=== PATIENT | female | born 1960 | race Caucasian/White ===

== ENCOUNTER 2022-11-01 12:54 | Emergency (ER) | payer OTHER, SELFPAY ==
[2022-11-01] VITALS (22 sets, daily range): BP systolic 103–148; BP diastolic 59–100; PULSE 50–131; RESP 14–28; TEMP 36.4; O2SAT 93–99; BMI 21.4
--- NOTE | 2022-11-01 13:09 | DI.RAD.S_ITS ---
PROCEDURE: XR CHEST 1V INDICATIONS: chest pain TECHNIQUE: One view of the chest was acquired. COMPARISON: None. FINDINGS: Surgical changes and devices: None. Lungs and pleura: Lungs are clear, yet hyperexpanded. No pleural effusions or pneumothorax. Mediastinum: Mediastinal contours appear normal. Heart size is normal. Bones and chest wall: No suspicious bony lesions. Age-appropriate bony degenerative changes are seen. Overlying soft tissues appear unremarkable. IMPRESSION: Hyperexpanded lungs, without an acute cardiopulmonary process identified. Dictated by: Raghu Pizano M.D. on 11/01/2022 at 14:34 Approved by: Raghu Pizano M.D. on 11/01/2022 at 14:35
--- NOTE | 2022-11-01 13:10 | ED_ITS ---
HPI - Arrhythmia/Palpitations General Chief Complaint: Arrhythmia/Palpitations Stated Complaint: FEELS LIKE AFIB Time Seen by Provider: 11/01/22 12:56 Source: patient Mode of arrival: Ambulatory History of Present Illness HPI narrative: 61-year-old female nonsmoker with history of atrial fibrillation and ablation about 2 years ago presents with her significant other and a chief complaint of rapid heart this morning. She states that she is not had any episodes since her ablation and is not taking anticoagulants. She states that she woke up this morning and felt a rapid heart rate with some chest pressure and shortness of breath. She is certain she has not been in it for longer than a few hours. She denies any medication or dietary change. She is otherwise well and free of complaint Related Data Previous Rx's Medication Instructions Recorded rivaroxaban 20 mg tablet (Xarelto) 20 mg PO DAILY #30 tabs 11/01/22 Allergies Allergy/AdvReac Type Severity Reaction Status Date / Time diphenhydramine Allergy Verified 11/01/22 13:01 [From Bette] Review of Systems Review of Systems Narrative: GENERAL: Denies chills, fatigue, malaise, fever, sweats. HEENT: Denies sinus pain, ear pain, sore throat, difficulty swallowing, dizziness. RESPIRATORY: see HPI CARDIOVASCULAR: see HPI GASTROINTESTINAL: Denies nausea, vomiting, abdominal pain, diarrhea, constipation, melena. : Denies dysuria, frequency, incontinence, hematuria, urinary retention. MUSCULOSKELETAL: denies weakness, joint pain, or bony pain SKIN: Denies rash, skin lesions, or other NEUROLOGIC: Denies weakness, headache, numbness, change in speech, confusion, seizures, incoordination. PSYCHIATRIC: No concerning psychosocial issues. 12 point review of systems is negative except for those stated above Patient History Social History Smoking Status: Never smoker Smoking Status: Never smoker alcohol intake frequency: 0-2 drinks per day Substance Use Type: does not use Exam Narrative Exam Narrative: GENERAL: [61] year old patient appears stated age. Well-developed patient, in mild distress. HEAD: Atraumatic. Normocephalic. EYES: Pupils equal round and reactive. Extraocular motions intact. No scleral icterus. No injection or drainage. ENT: Nose without bleeding, purulent drainage. Throat without erythema, tonsillar hypertrophy or exudate. Airway patent. NECK: Trachea midline. Non tender CARDIOVASCULAR: tachycardic and irregular rhythm without murmurs, gallops, or rubs. RESPIRATORY: Clear to auscultation. Breath sounds equal bilaterally. No wheezes, rales, or rhonchi. GASTROINTESTINAL: Abdomen soft, non-tender, nondistended. EXTREMITIES: No edema or joint tenderness. BACK: Nontender without deformity or crepitance. No flank tenderness. NEURO: AOx3. SKIN: No rash or erythema of visible areas Initial Vital Signs Initial Vital Signs: Vital Signs Temperature 97.6 F 11/01/22 13:01 Pulse Rate 107 H 11/01/22 13:01 Respiratory Rate 18 11/01/22 13:01 Blood Pressure 145/100 H 11/01/22 13:01 Pulse Oximetry 98 11/01/22 13:01 Oxygen Delivery Method Room Air 11/01/22 13:01 Procedures Cardioversion Consent Signed: Yes Indication: rapid AFib Stability: Unstable Number of attempts (shocks): 1 Joules used: 120 Cardiac rhythm post-cardioversion: normal sinus rhythm Procedural Sedation Consent signed: Yes Time out performed: Yes Indication: cardioversion ASA Class: II Mallampati Airway Classification: Class II Preparation: cardiac monitor technician applied, pulse oximeter, capnometry used, reversal agents at bedside, suction/airway equipment at bedside and IV secured IV Propofol dose (mg): 80 Intraservice time/total sedation time (min): 10 ED Sedation Level: Moderate (Concious) Patient Tolerated Procedure: Well Complications: none Course Orders Ordered: ED Orders 11/01/22 13:09 XR chest 1V Stat 11/01/22 13:30 Complete Blood Count AUTO DIFF Stat Comprehensive Metabolic Panel Stat Lipase Stat MAG [Magnesium] Stat Troponin & CK Cardiac Panel Stat Discontinued Medications Sodium Chloride (Normal Saline 0.9%) 1,000 mls @ 150 mls/hr IV CONT [facility] Last Infusion: 11/01/22 16:19 Dose: 0 mls/hr Documented By: Admin: 11/01/22 13:42 Dose: 150 mls/hr Documented By: SPF Propofol (Propofol 200 Mg/20 Ml Vial) 65 mg 1 mg/kg (65 mg) IV NOW ONE Stop: 11/01/22 13:23 Last Admin: 11/01/22 15:22 Dose: Not Given Documented By: ANDIE Propofol (Propofol 200 Mg/20 Ml Vial) 80 mg IV SEEINSTR [facility] Last Admin: 11/01/22 15:11 Dose: 80 mg Documented By: ANDIE Rivaroxaban (Rivaroxaban 10 Mg Tablet) 20 mg PO NOW ONE Stop: 11/01/22 15:56 Last Admin: 11/01/22 16:20 Dose: 20 mg Documented By: ANDIE Vital Signs Vital signs: Vital Signs - 8 hr 11/01/22 13:01 11/01/22 15:15 11/01/22 15:17 Temperature 97.6 F Pulse Rate 107 H 53 L 52 L Respiratory Rate 18 26 H 19 Blood Pressure 145/100 H 110/62 Pulse Oximetry 98 93 96 Oxygen Delivery Method Room Air 11/01/22 13:18 11/01/22 13:30 11/01/22 14:59 Temperature Pulse Rate 126 H 127 H 125 H Respiratory Rate 27 H 22 23 Blood Pressure Pulse Oximetry 97 98 98 Oxygen Delivery Method Room Air Room Air 11/01/22 14:59 11/01/22 15:00 11/01/22 15:00 Temperature Pulse Rate 123 H Respiratory Rate 22 Blood Pressure 142/91 H 126/83 Pulse Oximetry 97 Oxygen Delivery Method Room Air 11/01/22 15:08 11/01/22 15:07 11/01/22 15:07 Temperature Pulse Rate 118 H Respiratory Rate 14 20 Blood Pressure 148/83 H Pulse Oximetry 96 Oxygen Delivery Method 11/01/22 15:10 11/01/22 15:10 11/01/22 15:15 Temperature Pulse Rate 131 H 52 L Respiratory Rate 28 H 23 Blood Pressure 122/88 Pulse Oximetry 98 93 Oxygen Delivery Method Room Air Room Air 11/01/22 15:15 11/01/22 15:21 11/01/22 15:21 Temperature Pulse Rate 53 L Respiratory Rate 22 Blood Pressure 110/62 108/64 Pulse Oximetry 96 Oxygen Delivery Method 11/01/22 15:25 11/01/22 15:25 11/01/22 15:30 Temperature Pulse Rate 52 L Respiratory Rate 20 Blood Pressure 116/69 103/69 Pulse Oximetry 97 Oxygen Delivery Method Room Air 11/01/22 15:30 11/01/22 15:35 11/01/22 15:35 Temperature Pulse Rate 52 L 53 L Respiratory Rate 24 28 H Blood Pressure 124/86 Pulse Oximetry 97 99 Oxygen Delivery Method Room Air Room Air 11/01/22 15:40 11/01/22 15:40 11/01/22 15:45 Temperature Pulse Rate 52 L Respiratory Rate 27 H Blood Pressure 123/79 112/69 Pulse Oximetry 97 Oxygen Delivery Method Room Air 11/01/22 15:45 11/01/22 15:50 11/01/22 15:50 Temperature Pulse Rate 52 L 52 L Respiratory Rate 19 22 Blood Pressure 114/73 Pulse Oximetry 96 98 Oxygen Delivery Method Room Air 11/01/22 15:55 11/01/22 15:55 11/01/22 16:00 Temperature Pulse Rate 50 L Respiratory Rate 19 Blood Pressure 131/70 139/73 Pulse Oximetry 99 Oxygen Delivery Method Room Air 11/01/22 16:00 11/01/22 16:05 11/01/22 16:05 Temperature Pulse Rate 53 L 51 L Respiratory Rate 19 19 Blood Pressure 120/59 L Pulse Oximetry 98 98 Oxygen Delivery Method 11/01/22 16:10 11/01/22 16:10 11/01/22 16:15 Temperature Pulse Rate 50 L 52 L Respiratory Rate 18 20 Blood Pressure 127/59 L Pulse Oximetry 98 98 Oxygen Delivery Method Room Air 11/01/22 16:15 Temperature Pulse Rate Respiratory Rate Blood Pressure 117/64 Pulse Oximetry Oxygen Delivery Method MDM - Arrhythmia/Palpitations Lab Data 11/01/22 13:30 11/01/22 13:30 Labs: Lab Results 11/01/22 11/01/22 Range/Units 13:30 13:30 WBC 5.3 (4.5-11.0) X10^3/uL RBC 4.61 (4.0-5.2) X10^6/uL Hgb 14.5 (12.0-16.0) g/dL Hct 42.3 (36-46) % MCV 91.6 (80-100) fL MCH 31.4 (26-34) PG MCHC 34.3 (30-36) % RDW 13.0 (11.6-14.8) % Plt Count 214 (150-400) X10^3/uL Neut % (Auto) 52.6 (50-75) % Lymph % (Auto) 37.3 (25-40) % Young % (Auto) 7.4 (3-14) % Eos % (Auto) 1.9 L (2-4) % Baso % (Auto) 0.8 (0-2) % Neut # (Auto) 2800 (2403-3880) /uL Lymph # (Auto) 2000 (3185-4965) /uL Young # (Auto) 400 (0-900) /uL Eos # (Auto) 100 (0-450) /uL Baso # (Auto) 0 (0-100) /uL Sodium 139 (137-145) mmol/L Potassium 3.6 (3.4-5.1) mmol/L Chloride 106 (98-107) mmol/L Carbon Dioxide 26 (22-32) mmol/L BUN 15 (7-17) mg/dL Creatinine 0.80 (0.52-1.04) mg/dL Estimated GFR > 60 (>60) mL/min BUN/Creatinine Ratio 18.8 (6-22) Glucose 114 H (70-100) mg/dL Calcium 9.6 (8.4-10.2) mg/dL Magnesium 1.9 (1.6-2.3) mg/dL Total Bilirubin 0.5 (0.2-1.3) mg/dL AST 27 (14-36) IU/L ALT 20 (<35) IU/L Alkaline Phosphatase 64 (38-126) U/L Total Creatine Kinase 94 (30-135) U/L Troponin I < 0.012 (0.01-0.034) ng/mL Total Protein 7.0 (6.3-8.2) g/dL Albumin 4.1 (3.5-5.0) g/dL Globulin 2.9 (1.7-4.1) g/dL Albumin/Globulin Ratio 1.4 (1.0-2.8) Lipase 147 (23-300) U/L ECG Data Interpretation: atrial fibrillation with rate of 132, ST depressions in inferior leads MDM Narrative Medical decision making narrative: [61] year old patient presents with rapid atrial fibrillation Multiple etiologies for patient's symptoms considered including, but not limited to: [ atrial fibrillation versus other] Prior Charts reviewed in our EMR Primary Historian: patient Labs reviewed and interpreted by myself: no significant lab abnormality Imaging reviewed: CXR without acute findings Patient's symptoms improved over duration of stay with above-stated therapies. She is symptomatic AFib for only a few hours, appropriate for cardioversion and responded very well. Given the cardioversion she needs 3-4 weeks of anticoagulation. Initially we had discussed Eliquis but she states that for s ome reason she thinks that when she was on Eliquis previously she did not tolerate it and had been switched to Xarelto hence our switch. 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 [ x] New medication prescriptions sent to your pharmacy: [ [facility]] [] New medication written as a paper prescription [ ] No new medications given *Please follow up with your primary care provider in 2-3 days, call for an appointment. Let them know you were seen in the Emergency Department and that we ask that you be seen in follow up. We will electronically transmit a record of today's note if your PCP is in our system *If you do not have a primary care provider please contact the [facility] Resource line at [phone]. They will ask some questions about your medical history and help get you set up with a doctor in the community. *Return to Emergency Department if you should have any new, worsening or concerning symptoms, such as [fever greater than 101 F, shaking chills, worsening pain, persistent vomiting or other bothersome symptoms] Prescriptions: New Xarelto 20 mg tablet 20 mg PO DAILY Qty: 30 0RF Rx Instructions: must administer with evening meal Stand Alone Forms: Patient Portal/API
[2022-11-01] MEDS: SODIUM CHLORIDE 0.9% 1,000 ML 150 ML IV (13:42)
[2022-11-01 13:45] LABS: Add Manual Diff / Slide Review NO; Basophils Absolute Auto 0 /uL (0-100); Basophils Percent Auto 0.8 % (0-2); Eosinophils Absolute Auto 100 /uL (0-450); Eosinophils Percent Auto 1.9 % (2-4); Hematocrit 42.3 % (36-46); Hemoglobin 14.5 g/dL (12.0-16.0); Lymphocytes Absolute Auto 2000 /uL (1100-4500); Lymphocytes Percent Auto 37.3 % (25-40); Mean Corpuscular HGB Conc 34.3 % (30-36); Mean Corpuscular Hemoglobin 31.4 PG (26-34); Mean Corpuscular Volume 91.6 fL (80-100); Monocytes Absolute Auto 400 /uL (0-900); Monocytes Percent Auto 7.4 % (3-14); Neutrophils Absolute Auto 2800 /uL (1500-7000); Neutrophils Percent Auto 52.6 % (50-75); Platelet Count 214 X10^3/uL (150-400); Red Blood Cell Count 4.61 X10^6/uL (4.0-5.2); White Blood Cell Count 5.3 X10^3/uL (4.5-11.0)
[2022-11-01] MEDS: propofoL 200 MG/20 ML VIAL 80 MG IV (15:11)
[2022-11-01 15:13] LABS: Alanine Aminotransferase 20 IU/L (<35); Albumin 4.1 g/dL (3.5-5.0); Albumin Globulin Ratio 1.4 (1.0-2.8); Alkaline Phosphatase 64 U/L (38-126); Aspartate Aminotransferase 27 IU/L (14-36); BUN Creatinine Ratio 18.8 (6-22); Bilirubin Total 0.5 mg/dL (0.2-1.3); Blood Urea Nitrogen 15 mg/dL (7-17); Calcium 9.6 mg/dL (8.4-10.2); Carbon Dioxide 26 mmol/L (22-32); Chloride 106 mmol/L (98-107); Creatine Kinase 94 U/L (30-135); Estimated Glomerular Filt Rate > 60 mL/min (>60); Globulin 2.9 g/dL (1.7-4.1); Glucose 114 mg/dL (70-100); HEMOLYSIS 25 (0-50); Lipase 147 U/L (23-300); Magnesium 1.9 mg/dL (1.6-2.3); Potassium 3.6 mmol/L (3.4-5.1); Sodium 139 mmol/L (137-145); Troponin I < 0.012 ng/mL (0.01-0.034)
[2022-11-01] MEDS: RIVAROXABAN 10 MG TABLET 20 MG PO (16:20)
== END 2022-11-01 16:29 | disposition home or self-care (01) ==
PROVIDERS: Emergency Provider Emergency Medicine
DX: I48.91 Unspecified atrial fibrillation (principal); Z79.01 Long term (current) use of anticoagulants
CPT/HCPCS: 36415; 71045; 80053; 82550; 83690; 83735; 84484; 85025; 92960; 93005; 96360; 96361; 99152; 99285; J2704